=== PATIENT | male | born 1965 | race Caucasian/White ===

== ENCOUNTER → 2017-01-23 | Outpatient (CLI) | payer OTHER ==
--- NOTE | 2017-01-23 07:31 | MR ---
EXAMINATION TYPE: MR shoulder LT wo con DATE OF EXAM: 01/23/2017 6:47 AM COMPARISON: NONE HISTORY: Pain in lt shoulder TECHNIQUE: Multiplanar multispin echo imaging of the left shoulder was performed. FINDINGS: Rotator cuff : There is full thickness partial tear of the supraspinatus tendon anteriorly superimpos ed upon changes of chronic tendinopathy. Remaining constituents of the rotator cuff are intact. Bursa: There is a small amount of fluid within the subacromial subdeltoid bursa. Musculature: There is no muscular tear, contusion, or atrophy. Acromioclavicular joint : Moderate AC joint arthropathy. Flat acromium with the subacromial spurring. Mild impingement. Osseous structures : There are no fractures or regions of abnormal bone marrow sig nal intensity. Long biceps tendon : The biceps tendon is normally situated within the bicipital groove. No complete or partial biceps tendon tear is present. Glenohumeral Joint fluid : There is no glenohumeral joint effusion. Cartilage and Bone : No focal hyaline cartilage defects are noted. No Hill-Sachs, reverse Hill-Sachs, or bony Bankart lesions are seen. Labrum : There are no SLAP or soft tissue Bankart lesions. No paralabral cysts are seen. OTHER FINDINGS : none IMPRESSION: 1. full thickness partial tear of the supraspinatus tendon anteriorly superimposed upon changes of ch ronic tendinopathy.
== END ==
LOC: RADMRIMAIN 06:13
PROVIDERS: ATTEND Orthopaedic Surgery
DX: M75.102 Unspecified rotator cuff tear or rupture of left shoulder, not specified as traumatic (principal)